=== PATIENT | female | born 1975 | race African-American/Black ===

== ENCOUNTER 2020-02-22 20:54 | Emergency (ER) | payer OTHER ==
[2020-02-22 21:11] VITALS: TEMP 98.8
[2020-02-22] MEDS ORDERED: SODIUM CHLORIDE 0.9% 500 ML 500 ML IV STA (21:21)
[2020-02-22] MEDS ORDERED: ACETAMINOPHEN TAB 325 MG TAB PO STA (21:22)
[2020-02-22 21:52] LABS: Basophils # (A) 0.1 k/uL (0-0.2); Basophils % (A) 0 %; Eosinophils # (A) 0.1 k/uL (0-0.7); Eosinophils % (A) 1 %; HCT 42.7 % (34.0-46.0); HGB 13.6 gm/dL (11.4-16.0); Lymphocytes # (A) 1.3 k/uL (1.0-4.8); Lymphocytes % (A) 12 %; MCH 26.2 pg (25.0-35.0); MCHC 31.9 g/dL (31.0-37.0); Monocytes # (A) 0.4 k/uL (0-1.0); Monocytes % (A) 4 %; Neutrophils # (A) 8.8 k/uL (1.3-7.7); Neutrophils % (A) 81 %; Platelet Count 303 k/uL (150-450); RBC 5.21 m/uL (3.80-5.40); RDW 14.9 % (11.5-15.5); WBC 10.8 k/uL (3.8-10.6)
[2020-02-22 22:07] LABS: ALT 17 U/L (4-34); AST 30 U/L (14-36); African American GFR (CKD) >90 (>60 ml/min/1.73 sqM); Albumin 3.7 g/dL (3.5-5.0); Alkaline Phosphatase 79 U/L (38-126); Anion Gap 7 mmol/L; Blood Urea Nitrogen 10 mg/dL (7-17); Calcium 8.3 mg/dL (8.4-10.2); Carbon Dioxide 25 mmol/L (22-30); Chloride 99 mmol/L (98-107); Glucose 102 mg/dL (74-99); Non-African American GFR(CKD) >90 (>60 ml/min/1.73 sqM); Potassium 3.6 mmol/L (3.5-5.1); Sodium 131 mmol/L (137-145); Total Bilirubin 0.6 mg/dL (0.2-1.3); Total Protein 6.5 g/dL (6.3-8.2)
[2020-02-22 22:36] LABS: Appearance,Urine Cloudy (Clear); Bacteria,Urine Rare /hpf; Bilirubin,Urine Negative (Negative); Blood,Urine Negative (Negative); Color,Urine Yellow; Glucose,Urine (UA) Negative (Negative); Ketones,Urine Negative (Negative); Leukocyte Esterase,Urine Negative (Negative); Mucus,Urine Moderate /hpf; Nitrite,Urine Negative (Negative); Protein,Urine Trace (Negative); RBC,Urine 1 /hpf (0-5); Specific Gravity,Urine 1.026 (1.001-1.035); Squamous Epithelial Cell,Urine 6 /hpf (0-4); Urobilinogen,Urine <2.0 mg/dL (<2.0); WBC,Urine 1 /hpf (0-5)
--- NOTE | 2020-02-22 22:59 | CT ---
EXAMINATION TYPE: CT abdomen pelvis w con DATE OF EXAM: 02/22/2020 COMPARISON: HISTORY: abdominal pain CT DLP: 1565.1 mGycm Automated exposure control for dose reduction was used. CONTRAST: Performed with IV Contrast, patient injected with 100 mL of Isovue 300. Multiple axial sections were obtained from the diaphragm to the floor the pelvis with IV contrast. Lung bases are clear. There is no pleural effusion. Heart is top normal in size. There is no pericard ial effusion. There is small hiatal hernia. Liver and spleen appear normal. Bile ducts are not dilate d. There is no evidence of pancreatic mass. Gallbladder appears normal. There is rounded 2.6 cm intermediate density left adrenal mass. The kidneys show satisfactory contrast opacification. There is no hydronephrosis. There is normal exc retion on the delayed images. There is no retroperitoneal adenopathy. Bladder distends smoothly. Uret ers are not dilated. There is no inguinal hernia. There is 2.8 cm cyst on the right ovary. Uterus is anteverted. Lumbar vertebra have normal alignment. Disc spaces are fairly normal. Bony pelvis is inta ct. Appendix is not seen. There is no sign of thickened appendix. There is no mesenteric edema. There is no ascites or free air. I see no sign of a bowel obstruction. IMPRESSION: Mild hiatal hernia. Intermediate density left adrenal mass. The appearance is nonspecific. Appendix not seen. No sign of thickened appendix.
--- NOTE | 2020-02-22 23:13 | ED ---
General Adult HPI - General Chief complaint: Abdominal Pain Stated complaint: Abdominal pain, body aches Time Seen by Provider: 02/22/20 21:13 Source: patient, RN notes reviewed, old records reviewed Mode of arrival: ambulatory Limitations: no limitations - History of Present Illness Initial comments: 44-year-old female patient presents to ED for evaluation of periumbilical abdominal pain generalized myalgias. Denies any upper respiratory symptoms cough or congestion. Denies a chance of being . Denies any nausea vomiting, dysuria. Systemic: Pt denies fatigue, fever/chills, rash. Pt denies weakness, night sweats, weight loss. Neuro: Pt denies headache, visual disturbances, syncope or pre-syncope. HEENT: Pt denies ocular discharge or irritation, otalgia, rhinorrhea, pharyngitis or notable lymphadenopathy. Cardiopulmonary: Pt denies chest pain, SOB, heart palpitations, dyspnea on exertion. Abdominal/GI: Pt denies n/v/d. : Pt denies dysuria, burning w/ urination, frequency/urgency. Denies new onset urinary or bowel incontinence. MSK: Pt denies myalgia, loss of strength or function in extremities. Neuro: Pt denies new onset weakness, paresthesias. - Related Data Home Medications Medication Instructions Recorded Confirmed Thyroid,Pork [[place] Thyroid] 90 mg PO DAILY 02/22/20 02/22/20 methylPREDNISolone Dose Pack See Taper PO DIRECTED 02/22/20 02/22/20 [Medrol Dose Pack] Allergies Allergy/AdvReac Type Severity Reaction Status Date / Time No Known Allergies Allergy Verified 02/22/20 22:27 Review of Systems ROS Statement: Those systems with pertinent positive or pertinent negative responses have been documented in the HPI. ROS Other: All systems not noted in ROS Statement are negative. Past Medical History Past Medical History: Thyroid Disorder Additional Past Medical History / Comment(s): type 2 diabetes History of Any Multi-Drug Resistant Organisms: None Reported Additional Past Surgical History / Comment(s): thyroid Past Psychological History: No Psychological Hx Reported Smoking Status: Never smoker Past Alcohol Use History: None Reported Past Drug Use History: None Reported General Exam - General Exam Comments Initial Comments: Constitutional: NAD, AOX3, Pt has pleasant affect. HEENT: NC/AT, trachea midline, neck supple, no lymphadenopathy. External ears appear normal, without discharge. Mucous membranes moist. EOM intact. There is no scleral icterus. No pallor noted. Cardiopulmonary: RRR, no murmurs, rubs or gallops, no JVD noted. Lungs CTAB in anterior and posterior pulido. No peripheral edema. Abdominal exam: Abdomen soft and non-distended. Abdomen mildly tender to palpation in periumbilical region. Bowel sounds active in LLQ. No hepatosplenomegaly. No ecchymosis Neuro: CN II-XII grossly intact. No nuchal rigidity. No raccon eyes, no robles sign, no hemotympanum. MSK: Full active ROM in upper and lower extremities, 5/5 stregnth. Limitations: no limitations Course Vital Signs 02/22/20 02/22/20 21:09 23:00 Temperature 98.8 F Pulse Rate 105 H Respiratory 16 16 Rate Blood Pressure 129/72 O2 Sat by Pulse 99 Oximetry Medical Decision Making - Medical Decision Making 44-year-old female patient presents to ED for evaluation of periumbilical abdominal pain generalized myalgias. Denies any upper respiratory symptoms cough or congestion. Denies a chance of being . Denies any nausea vomiting, dysuria. Patient vital signs are stable, afebrile. Laboratory investigations displayed mild leukocytosis at 10.8. Mild hyponatremia 131. UA was negative. CT abdomen and pelvis with contrast displayed mild facial hernia, intermediate density left renal mass, the appearance is nonspecific. Appendix is not seen, no sign of a thickened appendix. Patient was excessively elevated. Patient was discharged to follow up with primary care provider tomorrow and return to ER if condition worsens. Case discussed with Dr. Jones. - Lab Data Result diagrams: 02/22/20 21:43 02/22/20 21:43 Lab Results 02/22/20 02/22/20 02/22/20 Range/Units 21:43 21:43 21:43 WBC 10.8 H (3.8-10.6) k/uL RBC 5.21 (3.80-5.40) m/uL Hgb 13.6 (11.4-16.0) gm/dL Hct 42.7 (34.0-46.0) % MCV 82.0 (80.0-100.0) fL MCH 26.2 (25.0-35.0) pg MCHC 31.9 (31.0-37.0) g/dL RDW 14.9 (11.5-15.5) % Plt Count 303 (150-450) k/uL Neutrophils % 81 % Lymphocytes % 12 % Monocytes % 4 % Eosinophils % 1 % Basophils % 0 % Neutrophils # 8.8 H (1.3-7.7) k/uL Lymphocytes # 1.3 (1.0-4.8) k/uL Monocytes # 0.4 (0-1.0) k/uL Eosinophils # 0.1 (0-0.7) k/uL Basophils # 0.1 (0-0.2) k/uL Sodium (137-145) mmol/L Potassium (3.5-5.1) mmol/L Chloride (98-107) mmol/L Carbon Dioxide (22-30) mmol/L Anion Gap mmol/L BUN (7-17) mg/dL Creatinine (0.52-1.04) mg/dL Est GFR (CKD-EPI)AfAm (>60 ml/min/1.73 sqM) Est GFR (CKD-EPI)NonAf (>60 ml/min/1.73 sqM) Glucose (74-99) mg/dL Calcium (8.4-10.2) mg/dL Total Bilirubin (0.2-1.3) mg/dL AST (14-36) U/L ALT (4-34) U/L Alkaline Phosphatase (38-126) U/L Total Protein (6.3-8.2) g/dL Albumin (3.5-5.0) g/dL Lipase (23-300) U/L Urine Color Yellow Urine Appearance Cloudy H (Clear) Urine pH 6.0 (5.0-8.0) Ur Specific [place] 1.026 (1.001-1.035) Urine Protein Trace H (Negative) Urine Glucose (UA) Negative (Negative) Urine Ketones Negative (Negative) Urine Blood Negative (Negative) Urine Nitrite Negative (Negative) Urine Bilirubin Negative (Negative) Urine Urobilinogen <2.0 (<2.0) mg/dL Ur Leukocyte Esterase Negative (Negative) Urine RBC 1 (0-5) /hpf Urine WBC 1 (0-5) /hpf Ur Squamous Epith Cells 6 H (0-4) /hpf Urine Bacteria Rare H (None) /hpf Urine Mucus Moderate H (None) /hpf Urine HCG, Qual Not Detected (Not Detectd) 02/22/20 Range/Units 21:43 WBC (3.8-10.6) k/uL RBC (3.80-5.40) m/uL Hgb (11.4-16.0) gm/dL Hct (34.0-46.0) % MCV (80.0-100.0) fL MCH (25.0-35.0) pg MCHC (31.0-37.0) g/dL RDW (11.5-15.5) % Plt Count (150-450) k/uL Neutrophils % % Lymphocytes % % Monocytes % % Eosinophils % % Basophils % % Neutrophils # (1.3-7.7) k/uL Lymphocytes # (1.0-4.8) k/uL Monocytes # (0-1.0) k/uL Eosinophils # (0-0.7) k/uL Basophils # (0-0.2) k/uL Sodium 131 L (137-145) mmol/L Potassium 3.6 (3.5-5.1) mmol/L Chloride 99 (98-107) mmol/L Carbon Dioxide 25 (22-30) mmol/L Anion Gap 7 mmol/L BUN 10 (7-17) mg/dL Creatinine 0.57 (0.52-1.04) mg/dL Est GFR (CKD-EPI)AfAm >90 (>60 ml/min/1.73 sqM) Est GFR (CKD-EPI)NonAf >90 (>60 ml/min/1.73 sqM) Glucose 102 H (74-99) mg/dL Calcium 8.3 L (8.4-10.2) mg/dL Total Bilirubin 0.6 (0.2-1.3) mg/dL AST 30 (14-36) U/L ALT 17 (4-34) U/L Alkaline Phosphatase 79 (38-126) U/L Total Protein 6.5 (6.3-8.2) g/dL Albumin 3.7 (3.5-5.0) g/dL Lipase 247 (23-300) U/L Urine Color Urine Appearance (Clear) Urine pH (5.0-8.0) Ur Specific [place] (1.001-1.035) Urine Protein (Negative) Urine Glucose (UA) (Negative) Urine Ketones (Negative) Urine Blood (Negative) Urine Nitrite (Negative) Urine Bilirubin (Negative) Urine Urobilinogen (<2.0) mg/dL Ur Leukocyte Esterase (Negative) Urine RBC (0-5) /hpf Urine WBC (0-5) /hpf Ur Squamous Epith Cells (0-4) /hpf Urine Bacteria (None) /hpf Urine Mucus (None) /hpf Urine HCG, Qual (Not Detectd) Disposition Clinical Impression: Abdominal pain Disposition: HOME SELF-CARE Condition: Stable Instructions (If sedation given, give patient instructions): Abdominal Pain (ED) Additional Instructions: Follow-up with primary care provider tomorrow. Return to ER if condition worsens. Is patient prescribed a controlled substance at d/c from ED?: No Referrals: Walker Slade MD [Primary Care Provider] - 1-2 days
--- NOTE | 2020-02-22 23:16 | ED ---
Medical Decision Making - Lab Data Result diagrams: 02/22/20 21:43 02/22/20 21:43 Lab Results 02/22/20 02/22/20 02/22/20 Range/Units 21:43 21:43 21:43 WBC 10.8 H (3.8-10.6) k/uL RBC 5.21 (3.80-5.40) m/uL Hgb 13.6 (11.4-16.0) gm/dL Hct 42.7 (34.0-46.0) % MCV 82.0 (80.0-100.0) fL MCH 26.2 (25.0-35.0) pg MCHC 31.9 (31.0-37.0) g/dL RDW 14.9 (11.5-15.5) % Plt Count 303 (150-450) k/uL Neutrophils % 81 % Lymphocytes % 12 % Monocytes % 4 % Eosinophils % 1 % Basophils % 0 % Neutrophils # 8.8 H (1.3-7.7) k/uL Lymphocytes # 1.3 (1.0-4.8) k/uL Monocytes # 0.4 (0-1.0) k/uL Eosinophils # 0.1 (0-0.7) k/uL Basophils # 0.1 (0-0.2) k/uL Sodium (137-145) mmol/L Potassium (3.5-5.1) mmol/L Chloride (98-107) mmol/L Carbon Dioxide (22-30) mmol/L Anion Gap mmol/L BUN (7-17) mg/dL Creatinine (0.52-1.04) mg/dL Est GFR (CKD-EPI)AfAm (>60 ml/min/1.73 sqM) Est GFR (CKD-EPI)NonAf (>60 ml/min/1.73 sqM) Glucose (74-99) mg/dL Calcium (8.4-10.2) mg/dL Total Bilirubin (0.2-1.3) mg/dL AST (14-36) U/L ALT (4-34) U/L Alkaline Phosphatase (38-126) U/L Total Protein (6.3-8.2) g/dL Albumin (3.5-5.0) g/dL Lipase (23-300) U/L Urine Color Yellow Urine Appearance Cloudy H (Clear) Urine pH 6.0 (5.0-8.0) Ur Specific [place] 1.026 (1.001-1.035) Urine Protein Trace H (Negative) Urine Glucose (UA) Negative (Negative) Urine Ketones Negative (Negative) Urine Blood Negative (Negative) Urine Nitrite Negative (Negative) Urine Bilirubin Negative (Negative) Urine Urobilinogen <2.0 (<2.0) mg/dL Ur Leukocyte Esterase Negative (Negative) Urine RBC 1 (0-5) /hpf Urine WBC 1 (0-5) /hpf Ur Squamous Epith Cells 6 H (0-4) /hpf Urine Bacteria Rare H (None) /hpf Urine Mucus Moderate H (None) /hpf Urine HCG, Qual Not Detected (Not Detectd) 02/22/20 Range/Units 21:43 WBC (3.8-10.6) k/uL RBC (3.80-5.40) m/uL Hgb (11.4-16.0) gm/dL Hct (34.0-46.0) % MCV (80.0-100.0) fL MCH (25.0-35.0) pg MCHC (31.0-37.0) g/dL RDW (11.5-15.5) % Plt Count (150-450) k/uL Neutrophils % % Lymphocytes % % Monocytes % % Eosinophils % % Basophils % % Neutrophils # (1.3-7.7) k/uL Lymphocytes # (1.0-4.8) k/uL Monocytes # (0-1.0) k/uL Eosinophils # (0-0.7) k/uL Basophils # (0-0.2) k/uL Sodium 131 L (137-145) mmol/L Potassium 3.6 (3.5-5.1) mmol/L Chloride 99 (98-107) mmol/L Carbon Dioxide 25 (22-30) mmol/L Anion Gap 7 mmol/L BUN 10 (7-17) mg/dL Creatinine 0.57 (0.52-1.04) mg/dL Est GFR (CKD-EPI)AfAm >90 (>60 ml/min/1.73 sqM) Est GFR (CKD-EPI)NonAf >90 (>60 ml/min/1.73 sqM) Glucose 102 H (74-99) mg/dL Calcium 8.3 L (8.4-10.2) mg/dL Total Bilirubin 0.6 (0.2-1.3) mg/dL AST 30 (14-36) U/L ALT 17 (4-34) U/L Alkaline Phosphatase 79 (38-126) U/L Total Protein 6.5 (6.3-8.2) g/dL Albumin 3.7 (3.5-5.0) g/dL Lipase 247 (23-300) U/L Urine Color Urine Appearance (Clear) Urine pH (5.0-8.0) Ur Specific [place] (1.001-1.035) Urine Protein (Negative) Urine Glucose (UA) (Negative) Urine Ketones (Negative) Urine Blood (Negative) Urine Nitrite (Negative) Urine Bilirubin (Negative) Urine Urobilinogen (<2.0) mg/dL Ur Leukocyte Esterase (Negative) Urine RBC (0-5) /hpf Urine WBC (0-5) /hpf Ur Squamous Epith Cells (0-4) /hpf Urine Bacteria (None) /hpf Urine Mucus (None) /hpf Urine HCG, Qual (Not Detectd) Disposition Clinical Impression: Abdominal pain, Left adrenal mass Disposition: HOME SELF-CARE Condition: Stable Instructions (If sedation given, give patient instructions): Abdominal Pain (ED) Additional Instructions: Follow-up with primary care provider tomorrow. Have recheck with PCP about adrenal mass. Return to ER if condition worsens. Is patient prescribed a controlled substance at d/c from ED?: No Referrals: Walker Slade MD [Primary Care Provider] - 1-2 days
[2020-02-22 23:44] VITALS: BP 120/71; PULSE 96; RESP 18
== END 2020-02-22 23:44 | disposition home or self-care (01) ==
LOC: EC 20:54
DX: Z03.818 Encounter for observation for suspected exposure to other biological agents ruled out (principal); R10.84 Generalized abdominal pain; M79.10 Myalgia, unspecified site; K44.9 Diaphragmatic hernia without obstruction or gangrene; D72.829 Elevated white blood cell count, unspecified; E87.1 Hypo-osmolality and hyponatremia; N28.89 Other specified disorders of kidney and ureter; E07.9 Disorder of thyroid, unspecified; Z79.890 Hormone replacement therapy
CPT/HCPCS: 36415; 80053; 83690; 85025; 81001; 81025; 74177; 99285; U0003; Q9967